=== PATIENT | female | born 1955 | race Caucasian/White ===

== ENCOUNTER → 2017-08-01 | Outpatient (CLI) | payer OTHER | LOC: BMCIMAGING 12:35 | PROVIDERS: ATTEND Family Medicine | DX: Z12.31 Encounter for screening mammogram for malignant neoplasm of breast (principal); Z80.3 Family history of malignant neoplasm of breast | CPT/HCPCS: G0202 ==

== ENCOUNTER → 2018-08-21 | Outpatient (CLI) | payer OTHER | LOC: BMCIMAGING 12:32 | PROVIDERS: ATTEND Family Medicine | DX: Z12.31 Encounter for screening mammogram for malignant neoplasm of breast (principal); Z80.3 Family history of malignant neoplasm of breast ==

== ENCOUNTER 2019-05-09 17:20 | Emergency (ER) | payer OTHER ==
--- NOTE | 2019-05-09 17:34 | EDPHY ---
General - History Smoking Status: Never smoked Time Seen by Provider: 05/09/19 17:34 Narrative: CLINICAL IMPRESSION: Left elbow dislocation, left shoulder pain ASSESSMENT/PLAN: Patient is a 63-year-old female with a history of hypertension who presents to the emergency department with acute left shoulder, left elbow pain and deformity after sustaining a mechanical fall just prior to arrival. Patient is mildly uncomfortable appearing however not toxic-appearing. Physical examination reveals dislocation of the left elbow. Shoulder x-ray revealed no acute abnormality. Elbow X-ray revealed a lateral dislocation. The elbow was reduced and relocated without difficulty, CMS remained intact post reduction and splint placement. The post reduction x-ray revealed good alignment however small calcific fragments were noted which could possibly represent a small chip or avulsion fracture. History of physical examination is consistent with left elbow dislocation and left shoulder pain. No findings to suggest open fracture , compartment syndrome or neurovascular compromise. Ortho referral provided, return precautions discussed. ED PROCEDURES: Procedure: Dislocation reduction. The left elbow dislocation was reduced in the usual fashion without complications. Post reduction the patient's neurovascular exam is normal. Post reduction x-ray demonstrates reduction of the joint to the anatomic position. The procedure was performed by myself. Procedure: Splint placement. A posterior long-arm splint was applied. After application of the splint I returned and re-examined the patient. The splint was adequately immobilizing the left elbow and the patient's circulation and sensation was intact. ED COURSE: 175: Case discussed with Dr. Jenkins CHIEF COMPLAINT: Left shoulder and elbow pain HPI: Patient is a 63-year-old female with a history of hypertension who presents to the emergency department after left shoulder pain, left elbow pain and deformity after sustaining a mechanical fall just prior to arrival. Patient reports that she was gardening, accidentally fell forward with her left arm stretched out causing her to hyper extend her left elbow. She immediately experienced pain and noted deformity. She also complains of left shoulder pain. She denies any numbness or tingling of the extremity. She does have limited range of motion secondary to the pain and deformity of the left elbow. Patient also has a history of elbow dislocation 29 years prior no injury and no history of surgery since. Patient did not hit her head, there was no loss of consciousness. She denies any neck or back pain. She denies any other injury or complaint. ROS: Review of systems otherwise negative, please see HPI. PHYSICAL EXAM: General Appearance: Well-appearing, no acute distress. Neck: Supple, no midline tenderness to palpation, full range of motion. Respiratory: There are no retractions, lungs are clear to auscultation. No anterior chest wall tenderness, no evidence of rib or thoracic injury. Cardiac: Regular rate and rhythm, no murmurs or gallops. Gastrointestinal: Abdomen is soft, nontender, bowel sounds normal, no masses/ hernia, no rigidity, guarding or focal peritoneal findings. No evidence of traumatic abdominal injury. Skin: Warm, dry, no rashes. Upper Extremities: Patient is supporting her left upper extremity. Patient with generalized tenderness to palpation on the lateral aspect of her left shoulder. Limited exam secondary to the pain she is experiencing in her elbow. Her upper arm compartment is soft. There is a palpable bony deformity of the elbow. Forearm compartment is soft. Radial pulses 2+. Hand is nontender with full range of motion. The radial, ulnar and median nerves were all tested. Radial nerve: Patient is able to extend wrist and fingers of the local joints. Ulnar nerve: Patient is able to abduct all fingers. Median nerve patient is able to oppose thumb to pinky. Right upper extremity is unremarkable- Intact distal pulses, Full range of motion intact, no tenderness, no ecchymosis or edema. Lower Extremities: Intact distal pulses, No edema, No tenderness, No cyanosis, full range of motion intact, No calf tenderness bilaterally. MEDICAL DECISION MAKING: Patient was seen by myself and Dr. Jenkins. Diagnosis: Left shoulder pain, left elbow dislocation Summary: See Assessment and Plan for summary of ED visit Clinical lab tests: Not applicable. Independent visualization of images, tracing, or specimens: Yes. Decision to obtain medical records or history from someone other than the patient: No Review / Summarize previous medical records: Yes Discussed patient with another provider: Yes, Dr. Jenkins Patient Progress: Stable, discharged. (Charley Munroe) Medical Decision Making: Independent physician evaluation: CHIEF COMPLAINT: Left elbow injury HISTORY OF PRESENT ILLNESS: Patient presents the ED with complaints of left elbow pain and immobility after she slipped and fell in a wet garden. She denies any acute numbness or weakness. She does report a prior history of a traumatic elbow dislocation in the . REVIEW OF SYSTEMS: Constitutional: normal mentation Eyes: No visual changes ENT: no oral trauma Respiratory: no rib pain, no difficulty breathing Cardiac: No chest pain Gastrointestinal: No nausea, no vomiting, no abdominal pain Genitourinary: No hematuria, no dysuria Musculoskeletal: As above Skin: no abrasions, no lacerations Neurological: No headache, no numbness, no weakness Back: No midline pain Physical exam: General Appearance: Alert, no distress Head: Atraumatic Eyes: Pupils equal, round, reactive ENT, Mouth: No hemotympanum, no oral trauma Neck: Nontender, trachea midline Respiratory: No chest wall tender, subcutaneous air, lungs clear bilaterally Cardiovascular: Regular rate and rhythm Abdomen: Abdomen is soft and nontender, pelvis stable Skin: No lacerations, No abrasion Back: No midline T/L/S pain Extremities: Obvious posterior dislocation of the left elbow Neurological: A&Ox3, normal motor function, normal sensory exam ED course: Patient received 100 mcg of fentanyl. Her elbow dislocation was reduced by the physician library media assistant without complication. Post reduction x-ray demonstrates intact alignment. The patient has been placed in a posterior splint and will be referred to Orthopedic surgery. (Rg Jenkins) - Diagnostics Imaging Results: Imaging Impressions Shoulder X-Ray 05/09/19 17:49 Impression: 1. No acute osseous abnormality seen 2 views left shoulder. Elbow X-Ray 05/09/19 17:50 IMPRESSION: 1. Lateral dislocation of the proximal radius and ulna at the elbow joint positioned adjacent to the lateral distal humeral epicondyle. Elbow X-Ray 05/09/19 18:18 IMPRESSION: 1. Good alignment left elbow postreduction. 2. Calcific fragments adjacent to the medial elbow joint could represent chip or avulsion fractures. - Objective Vital Signs: Initial Vital Signs Temperature (C) 36.4 C 05/09/19 17:26 Heart Rate 96 05/09/19 17:26 Respiratory Rate 18 05/09/19 17:26 Blood Pressure 156/116 H 05/09/19 17:26 O2 Sat (%) 94 05/09/19 17:26 O2 Delivery Mode Room Air Allergies/Adverse Reactions: Penicillins Allergy (Verified 05/09/19 17:23) Home Medications: Medication Instructions Recorded Fluticasone Nasal [Flonase Nasal 2 sprays NASAL DAILY 07/16/12 [place] (RX)] Valsartan [Diovan] 160 mg PO 07/16/12 Hydrocodone/APAP 5/325 [[place] 1 - 2 tab PO Q6H PRN #20 tab 05/09/19 5/325 (*)] Medications Given: Discontinued Medications Hydrocodone Bitart/Acetaminophen ([place] 5/325) 1 tab PO EDNOW ONE Stop: 05/09/19 18:31 Last Admin: 05/09/19 18:38 Dose: 1 tab Fentanyl (Sublimaze) 100 mcg IVP ONCE ONE Stop: 05/09/19 18:11 Last Admin: 05/09/19 18:17 Dose: 100 mcg Departure - Departure Disposition: Home, Routine, Self-Care Clinical Impression: Elbow dislocation Qualifiers: Encounter type: initial encounter Laterality: left Qualified Code(s): S53.105A - Unspecified dislocation of left ulnohumeral joint, initial encounter Shoulder pain, acute Qualifiers: Laterality: left Qualified Code(s): M25.512 - Pain in left shoulder Condition: Good Instructions: Elbow Dislocation (ED) Additional Instructions: DISCHARGE INSTRUCTIONS FROM YOUR PROVIDER Thank you for visiting our emergency department today. Rest, no heavy lifting, pushing, pulling, carrying with the affected arm. Apply ice on and off to the painful area, whichever feels better. Wear the sling and splint as applied on and off as applied until follow-up. For pain control: You may take Tylenol, I recommend 500-1000 mg every 6-8 hours as needed. Take with food and a full glass of water. Stop taking if this is upsetting you stomach. Do not exceed 3000 mg in a 24 hr period. There is Tylenol also in [place], please be careful if you take both of these medications together. You may also take ibuprofen, recommend 400 mg every 6 hr. Take with food and a full glass of water. Stop taking if this upsets your stomach. Do not exceed 2400 mg in a 24 hr period. [place] as prescribed as needed for severe pain. Caution -this may cause dizziness and/or drowsiness. Do not combine with tylenol, alcohol, driving or operating heavy machinery. Be careful as this can be addictive. Be careful as this can cause constipation. The emergency department cannot refill this medication. Continue your regular medication as prescribed. Call and schedule with a primary care provider for a follow-up appointment and to establish care for your primary care needs. Return for increased or unmanageable pain, inability to move the shoulder or neck, fever, chills, redness, warmth, swelling, numbness, tingling or weakness of the arm, loss of geosciences professor strength, coolness of the fingertips, chest pain, shortness of breath, or for any other new, worsening or worrisome symptoms. People present with illnesses and injuries in different ways, and it is always possible that we have missed something. Again, thank you for choosing our emergency department. We hope that you feel better. Referrals: Shira Garcia MD [Primary Care Provider] - As per Instructions Pritesh Farrar MD [Medical Doctor] - 2-3 days, call for appt. Prescriptions: Hydrocodone/APAP 5/325 [[place] 5/325 (*)] 1 - 2 tab PO Q6H PRN #20 tab PRN Reason: Pain, Severe
[2019-05-09] MEDS ORDERED: fentaNYL 100 MCG/2 ML INJ IVP ONE (18:10)
[2019-05-09] MEDS ORDERED: HYDROCODONE/APAP 5/325 TAB PO ONE (18:30)
[2019-05-09 19:22] VITALS: BP 178/98
== END 2019-05-09 19:21 | disposition home or self-care (01) ==
PROC: 0RSMXZZ Reposition Left Elbow Joint, External Approach (ICD-10-PCS; principal; 2019-05-09)
DX: S53.145A Lateral dislocation of left ulnohumeral joint, initial encounter (principal); W19.XXXA Unspecified fall, initial encounter
CPT/HCPCS: 96374; A4565; J3010